=== PATIENT | female | born 1960 | race Caucasian/White ===

== ENCOUNTER 2023-12-08 11:15 | Observation (INO) | payer MEDICAID ==
[2023-12-08] MEDS: Nitroglycerin 0.4 MG Tab.SL SL PRN (12:11)
[2023-12-08] MEDS: Ondansetron 4 MG/2 ML SDV IVPUSH ONE ×2 (12:24→18:49)
[2023-12-08] MEDS: Sodium Chloride 0.9% 1,000 ML IV ONE ×2 (12:29→19:30)
[2023-12-08 12:37] LABS: BASOPHILS ABSOLUTE AUTO 0.1 x10-3/uL (0.0-0.1); BASOPHILS PERCENT AUTO 0.6 % (0.2-1.5); EOSINOPHILS ABSOLUTE AUTO 0.3 x10-3/uL (0.0-0.8); EOSINOPHILS PERCENT AUTO 2.4 % (0.6-8.1); HEMATOCRIT 41.5 % (34.2-48.2); HEMOGLOBIN 13.8 g/dL (11.4-15.5); LYMPHOCYTES ABSOLUTE AUTO 2.8 x10-3/uL (1.0-4.4); MEAN CORPUSCULAR HEMOGLOBIN 28.4 pg (23.9-33.9); MEAN CORPUSCULAR HGB CONC 33.2 g/dL (31.9-34.8); MEAN CORPUSCULAR VOLUME 85.4 fL (76.7-100.5); MEAN PLATELET VOLUME 8.1 fL (7.1-12.4); MONOCYTES ABSOLUTE AUTO 1.6 x10-3/uL (0.3-1.0); MONOCYTES PERCENT AUTO 13.9 % (4.4-15.7); NEUTROPHILS ABSOLUTE AUTO 6.9 x10-3/uL (1.5-6.3); NEUTROPHILS PERCENT AUTO 59.1 % (30.8-76.2); PLATELET COUNT,PLT 239 x10(3)uL (151-488); RED BLOOD CELL COUNT 4.87 x10(6)uL (3.60-5.20); RED CELL DISTRIBUTION WIDTH 14.9 % (12.3-16.5); WHITE BLOOD CELL COUNT,WBC 11.7 x10-3/uL (3.0-10.3)
[2023-12-08 12:42] LABS: BLOOD UREA NITROGEN,BUN 24 mg/dL (7-18); BUN/CREATININE RATIO 18.5 (9-20); CALCIUM 9.5 mg/dL (8.6-10.2); CARBON DIOXIDE,CO2 27 mmol/L (21-32); CHLORIDE,CL 102 mmol/L (100-110); CREATININE 1.3 mg/dL (0.55-1.02); EST CRCL DRUG DOSING (CG) 34.58 mL/min; ESTIMATED GFR 46 mL/min (>60); GLUCOSE RANDOM 129 mg/dL (80-116); SODIUM,NA 139 mmol/L (135-145)
[2023-12-08 12:48] LABS: A/G RATIO 0.8; ALANINE AMINOTRANSFERASE,ALT 31 U/L (12-36); ALBUMIN 3.5 g/dL (3.2-4.6); ALKALINE PHOSPHATASE 89 IU/L (56-112); ASPARTATE AMNIOTRANSFERASE,AST 40 IU/L (5-25); BILIRUBIN TOTAL 0.4 mg/dL (0.1-1.3); PROTEIN TOTAL,TP 7.9 g/dL (6.0-8.0)
[2023-12-08] MEDS: Morphine 2 MG/ML SYRINGE IVPUSH ONE (13:12)
[2023-12-08] MEDS: fentaNYL 100 MCG/2 ML SDV IVPUSH ONE ×2 (13:35→20:44)
[2023-12-08] MEDS: Iopamidol 755 Mg/ML 100 ML Bottle IV SCH ×2 (15:26→19:30)
[2023-12-08] MEDS: fentaNYL 100 MCG/2 ML SDV IVPUSH STA (18:38)
[2023-12-08] MEDS: Diatrizoate Meglumine/Diatrizoate Sodium 37% 30 ML Bottle PO ONE (19:30)
[2023-12-08 22:16] LABS: BILIRUBIN,URINE NEGATIVE (NEGATIVE); GLUCOSE,URINE NORMAL (NORMAL); KETONES,URINE NEGATIVE (NEGATIVE); LEUKOCYTE ESTERASE,URINE LARGE (NEGATIVE); NITRITE,URINE NEGATIVE (NEGATIVE); OCCULT BLOOD,URINE NEGATIVE (NEGATIVE); PROTEIN,URINE NEGATIVE (NEGATIVE); UROBILINOGEN,URINE NORMAL (NEGATIVE)
[2023-12-08 22:19] LABS: APPEARANCE,URINE CLEAR (CLEAR); BACTERIA,URINE FEW (NS); COLOR,URINE YELLOW (YELLOW); RBC,URINE 0-5 (0-5); SQUAMOUS EPITHELIAL CELLS,UR FEW (NS,R,O)
[2023-12-09] MEDS: fentaNYL 100 MCG/2 ML SDV IVPUSH PRN (00:56)
[2023-12-09] MEDS: Sodium Chloride 0.9% 10 ML Syringe FLUSH PRN (01:12)
[2023-12-09] MEDS ORDERED: Acetaminophen/HYDROcodone 325-5 MG Tab PO PRN (10:45)
[2023-12-09] MEDS ORDERED: Tiotropium BR/Olodaterol HCL 4 GM Inhalation Spray 2.5mcg/1 dose; 10 doses INH PRN (11:01)
[2023-12-09] MEDS ORDERED: Albuterol 6.7 GM Inhaler INH PRN (11:01)
[2023-12-09] MEDS: busPIRone 15 MG Tab PO SCH (11:27)
[2023-12-09] MEDS: Ezetimibe 10 MG Tab PO SCH (11:28)
[2023-12-09] MEDS: DULoxetine 60 MG Cap PO SCH (11:28)
[2023-12-09] MEDS: Metoprolol Tartrate 100 MG Tab PO SCH (11:28)
[2023-12-09] MEDS: Magnesium Oxide 400 MG Tab PO SCH (11:28)
[2023-12-09] MEDS: Aspirin 81 MG Tab.EC PO SCH (11:29)
[2023-12-09] MEDS: amLODIPine 5 MG Tab PO SCH (11:29)
[2023-12-09] MEDS: lamoTRIgine 25 MG Tab PO SCH (11:29)
[2023-12-09] MEDS: Isosorbide Mononitrate 60 MG Tab.ER PO SCH (11:30)
[2023-12-09] MEDS: atorvaSTATin 20 MG Tab PO SCH (11:30)
[2023-12-09] MEDS: Pantoprazole 40 MG Tab.CR PO SCH (11:30)
[2023-12-09] MEDS: Levofloxacin/Dextrose 5%-Water 750 MG in Premix Bag 1 BAG IV SCH (11:34)
[2023-12-09] MEDS: Acetaminophen/oxyCODONE 325-5 MG Tab PO PRN (11:39)
[2023-12-09] MEDS ORDERED: Glucagon,Human Recombinant 1 MG Vial IM PRN (12:06)
[2023-12-09] MEDS ORDERED: 50% Dextrose in Water 50 ML Syringe IVPUSH PRN (12:06)
[2023-12-09] MEDS: Sodium Chloride 0.9% 1,000 ML IV SCH (12:33)
[2023-12-09 13:00] LABS: LACTIC ACID 2.5 mmol/L (0.4-2.0)
[2023-12-09] MEDS: Clindamycin HCl 150 MG Cap PO SCH (13:09)
[2023-12-09] MEDS: Heparin Sodium 5,000 Units/ML Vial SUBCUT SCH (13:15)
[2023-12-09 14:49] VITALS: BP 168/73; PULSE 77
[2023-12-09] MEDS: Acetaminophen 500 MG Tab PO PRN (15:12)
[2023-12-09] MEDS: Morphine 2 MG/ML SYRINGE IVPUSH PRN (16:43)
[2023-12-09] MEDS ORDERED: Insulin Lispro 100 Unit/ML 3 ML KwikPen SUBCUT SCH (18:00)
[2023-12-09] MEDS ORDERED: Latanoprost 0.005% Ophth Soln 2.5 ML Bottle EYEBOTH SCH (21:00)
[2023-12-10] MEDS ORDERED: ATOMOXETINE 40 MG PO SCH (09:00)
[2023-12-11 06:58] LABS: CREATININE,URINE - PER VOLUME 97 mg/dL; HOURS COLLECTED Not Provided hr; TOTAL VOLUME Not Provided mL; URINE UREA NITROGEN - MG/DL 762 mg/dL
[2023-12-13 08:39] LABS: CREATININE,URINE - PER VOLUME 97 mg/dL; HOURS COLLECTED Not Provided hr; TOTAL VOLUME Not Provided mL
== END 2023-12-09 17:22 ==
LOC: FB.ED 11:15 → FB.MS 23:45
PROVIDERS: ADMIT Internal Medicine; ATTEND Internal Medicine
DX: N17.9 Acute kidney failure, unspecified (principal); N39.0 Urinary tract infection, site not specified; R31.9 Hematuria, unspecified; N13.30 Unspecified hydronephrosis; E11.9 Type 2 diabetes mellitus without complications; I10 Essential (primary) hypertension; E78.5 Hyperlipidemia, unspecified; I25.10 Atherosclerotic heart disease of native coronary artery without angina pectoris; F32.A Depression, unspecified; J44.9 Chronic obstructive pulmonary disease, unspecified; Z79.899 Other long term (current) drug therapy
CPT/HCPCS: 36415; 71275; 74177; 80053; 81001; 82570; 83605; 84484; 84540; 85025; 85379; 86140; 87040; 87086; 87088; 87186; 93005; 93010; 96361; 96365; 96366; 96372; 96374; 96375; 96376; 99222; 99238; 99285; 99285-25; A9270-GY; G0378; J1644; J1815; J1956; J2270; J2405; J3010; J3490; J7030; Q9963; Q9967

== ENCOUNTER 2023-12-24 13:43 | Emergency (ER) | payer MEDICAID ==
[2023-12-24] MEDS: Cyclobenzaprine 10 MG Tab PO ONE (14:28)
[2023-12-24] MEDS: oxyCODONE 5 MG Tab PO ONE (14:29)
[2023-12-24 16:37] VITALS: BP 150/75; PULSE 74
== END 2023-12-24 15:11 | disposition home or self-care (01) ==
LOC: FB.ED 13:43
DX: M54.50 Low back pain, unspecified (principal); K08.89 Other specified disorders of teeth and supporting structures; I11.0 Hypertensive heart disease with heart failure; I50.9 Heart failure, unspecified; I25.2 Old myocardial infarction; E78.00 Pure hypercholesterolemia, unspecified; K21.9 Gastro-esophageal reflux disease without esophagitis; E11.9 Type 2 diabetes mellitus without complications; E66.9 Obesity, unspecified; Z88.0 Allergy status to penicillin; Z88.8 Allergy status to other drugs, medicaments and biological substances; Z79.82 Long term (current) use of aspirin; Z79.899 Other long term (current) drug therapy; Z79.84 Long term (current) use of oral hypoglycemic drugs; Z79.51 Long term (current) use of inhaled steroids; Z95.5 Presence of coronary angioplasty implant and graft
CPT/HCPCS: 99283; A9270

== ENCOUNTER 2024-04-27 13:49 | Emergency (ER) | payer MEDICAID ==
[2024-04-27 14:08] VITALS: BP 122/79; PULSE 100
== END 2024-04-27 15:09 | disposition home or self-care (01) ==
LOC: FB.ED 13:49
DX: S20.211A Contusion of right front wall of thorax, initial encounter (principal); I25.2 Old myocardial infarction; I11.0 Hypertensive heart disease with heart failure; I50.9 Heart failure, unspecified; E78.00 Pure hypercholesterolemia, unspecified; K21.9 Gastro-esophageal reflux disease without esophagitis; E11.9 Type 2 diabetes mellitus without complications; E66.9 Obesity, unspecified; F17.210 Nicotine dependence, cigarettes, uncomplicated; Z95.5 Presence of coronary angioplasty implant and graft; Z90.89 Acquired absence of other organs; Z88.0 Allergy status to penicillin; Z88.8 Allergy status to other drugs, medicaments and biological substances; Z79.51 Long term (current) use of inhaled steroids; Z79.82 Long term (current) use of aspirin; Z79.899 Other long term (current) drug therapy; W01.198A Fall on same level from slipping, tripping and stumbling with subsequent striking against other object, initial encounter
CPT/HCPCS: 71101-RT; 99283

== ENCOUNTER 2024-08-20 14:59 | Emergency (ER) | payer MEDICARE, MEDICAID ==
[2024-08-20 16:02] LABS: HEMATOCRIT 36.9 % (34.2-48.2); MEAN CORPUSCULAR HEMOGLOBIN 32.6 pg (23.9-33.9); MEAN CORPUSCULAR HGB CONC 32.5 g/dL (31.9-34.8); MEAN CORPUSCULAR VOLUME 100.3 fL (76.7-100.5); PLATELET COUNT,PLT 185 x10(3)uL (151-488); RED BLOOD CELL COUNT 3.68 x10(6)uL (3.60-5.20); RED CELL DISTRIBUTION WIDTH 17.8 % (12.3-16.5); WHITE BLOOD CELL COUNT,WBC 4.4 x10-3/uL (3.0-10.3)
[2024-08-20 16:04] LABS: BILIRUBIN,URINE NEGATIVE (NEGATIVE); GLUCOSE,URINE >1000 mg/dL (NORMAL); KETONES,URINE NEGATIVE (NEGATIVE); LEUKOCYTE ESTERASE,URINE LARGE (NEGATIVE); NITRITE,URINE NEGATIVE (NEGATIVE); OCCULT BLOOD,URINE LARGE (NEGATIVE); PROTEIN,URINE 30 mg/dL (NEGATIVE); UROBILINOGEN,URINE NORMAL (NEGATIVE)
[2024-08-20 16:07] LABS: BLOOD UREA NITROGEN,BUN 9 mg/dL (7-18); CALCIUM 9.1 mg/dL (8.6-10.2); CARBON DIOXIDE,CO2 27 mmol/L (21-32); CHLORIDE,CL 100 mmol/L (100-110); CREATININE 0.6 mg/dL (0.55-1.02); EST CRCL DRUG DOSING (CG) 73.93 mL/min; ESTIMATED GFR 100 mL/min (>60); GLUCOSE RANDOM 140 mg/dL (80-116); POTASSIUM,K 3.7 mmol/L (3.5-5.3); SODIUM,NA 138 mmol/L (135-145)
[2024-08-20 16:10] LABS: APPEARANCE,URINE CLOUDY (CLEAR); COLOR,URINE YELLOW (YELLOW)
[2024-08-20 16:11] LABS: BACTERIA,URINE FEW (NS); SQUAMOUS EPITHELIAL CELLS,UR RARE (NS,R,O); WBC,URINE 40-50 (0-5); YEAST,URINE MANY (NS)
[2024-08-20 16:13] LABS: ALANINE AMINOTRANSFERASE,ALT 77 U/L (12-36); ALKALINE PHOSPHATASE 156 IU/L (56-112); ASPARTATE AMNIOTRANSFERASE,AST 41 IU/L (5-25); BILIRUBIN TOTAL 0.4 mg/dL (0.1-1.3); C-REACTIVE PROTEIN 1.39 mg/dL (<0.50); PROTEIN TOTAL,TP 5.9 g/dL (6.0-8.0); TROPONIN I 26.5 pg/mL (4.0-60.3)
[2024-08-20 16:27] LABS: BAND PERCENT MAN 2 % (0-6); LYMPHOCYTES PERCENT MAN 18 % (13-37); MONOCYTES PERCENT MAN 15 % (4-12); NRBC MANUAL 2 /100WBC (0-0); SEG NEUTROPHILS PERCENT MAN 65 % (46-82)
[2024-08-20 16:28] LABS: ANISOCYTOSIS FEW
[2024-08-20] MEDS: Sodium Chloride 0.9% 10 ML Syringe FLUSH PRN (16:30)
[2024-08-20] MEDS: Sodium Chloride 0.9% 1,000 ML IV ONE (16:41)
[2024-08-20] MEDS: Ciprofloxacin in D5W 400 MG in Premix Bag 1 BAG IV ONE (18:30)
[2024-08-20] MEDS: Sodium Chloride 0.9% 500 ML IV ONE (18:50)
[2024-08-20 18:52] VITALS: BP 104/64
[2024-08-20 19:03] VITALS: PULSE 101
[2024-08-20] MEDS: Sodium Chloride 0.9% 1,000 ML IV SCH (19:37)
== END 2024-08-20 20:29 ==
LOC: FB.ED 14:59
DX: A41.9 Sepsis, unspecified organism (principal); N20.0 Calculus of kidney; B88.8 Other specified infestations; I11.0 Hypertensive heart disease with heart failure; I50.9 Heart failure, unspecified; I25.10 Atherosclerotic heart disease of native coronary artery without angina pectoris; K21.9 Gastro-esophageal reflux disease without esophagitis; E11.9 Type 2 diabetes mellitus without complications; E66.9 Obesity, unspecified; E87.20 Acidosis, unspecified; B37.49 Other urogenital candidiasis; C83.70 Burkitt lymphoma, unspecified site; Z88.8 Allergy status to other drugs, medicaments and biological substances; Z88.0 Allergy status to penicillin; Z79.82 Long term (current) use of aspirin; Z90.49 Acquired absence of other specified parts of digestive tract; Z79.899 Other long term (current) drug therapy
CPT/HCPCS: 36415; 51702; 74176; 80053; 81001; 83605; 83735; 84484; 85025; 86140; 87040; 87086; 87088; 87186; 93005; 93010; 96361; 96365; 99285; 99285-25; J0744; J7030; J7040

== ENCOUNTER 2024-08-29 15:09 | Emergency (ER) | payer MEDICARE, MEDICAID ==
[2024-08-29 16:33] LABS: HEMATOCRIT 37.8 % (34.2-48.2); HEMOGLOBIN 12.8 g/dL (11.4-15.5); MEAN CORPUSCULAR HEMOGLOBIN 33.1 pg (23.9-33.9); MEAN CORPUSCULAR HGB CONC 33.7 g/dL (31.9-34.8); RED BLOOD CELL COUNT 3.86 x10(6)uL (3.60-5.20); WHITE BLOOD CELL COUNT,WBC 2.7 x10-3/uL (3.0-10.3)
[2024-08-29 16:34] LABS: MEAN PLATELET VOLUME 6.9 fL (7.1-12.4); PLATELET COUNT,PLT 257 x10(3)uL (151-488); RED CELL DISTRIBUTION WIDTH 18.3 % (12.3-16.5)
[2024-08-29 16:36] LABS: BLOOD UREA NITROGEN,BUN 13 mg/dL (7-18); BUN/CREATININE RATIO 18.6 (9-20); CALCIUM 9.3 mg/dL (8.6-10.2); CARBON DIOXIDE,CO2 27 mmol/L (21-32); CHLORIDE,CL 100 mmol/L (100-110); CREATININE 0.7 mg/dL (0.55-1.02); ESTIMATED GFR 96 mL/min (>60); GLUCOSE RANDOM 128 mg/dL (80-116); SODIUM,NA 137 mmol/L (135-145)
[2024-08-29 16:45] LABS: LACTIC ACID 0.7 mmol/L (0.4-2.0)
[2024-08-29 16:53] LABS: ANISOCYTOSIS MODERATE; LYMPHOCYTES PERCENT MAN 14 % (13-37); MONOCYTES PERCENT MAN 40 % (4-12); SEG NEUTROPHILS PERCENT MAN 46 % (46-82); TARGET CELLS FEW
[2024-08-29 17:13] LABS: BILIRUBIN,URINE NEGATIVE (NEGATIVE); GLUCOSE,URINE 250 mg/dL (NORMAL); KETONES,URINE NEGATIVE (NEGATIVE); LEUKOCYTE ESTERASE,URINE NEGATIVE (NEGATIVE); NITRITE,URINE NEGATIVE (NEGATIVE); OCCULT BLOOD,URINE NEGATIVE (NEGATIVE); PROTEIN,URINE NEGATIVE (NEGATIVE); UROBILINOGEN,URINE NORMAL (NEGATIVE)
[2024-08-29 17:23] LABS: COLOR,URINE YELLOW (YELLOW)
[2024-08-29 17:24] LABS: APPEARANCE,URINE CLEAR (CLEAR)
[2024-08-29 17:43] VITALS: BP 156/87; PULSE 89
[2024-08-29] MEDS: Ketorolac 30 MG/ML SDV IM ONE (18:00)
[2024-08-29] MEDS: Ketorolac 30 MG/ML SDV IVPUSH ONE (18:00)
== END 2024-08-29 18:31 | disposition home or self-care (01) ==
LOC: FB.ED 15:09
DX: R51.9 Headache, unspecified (principal); Z46.6 Encounter for fitting and adjustment of urinary device; I25.10 Atherosclerotic heart disease of native coronary artery without angina pectoris; I25.2 Old myocardial infarction; I11.0 Hypertensive heart disease with heart failure; I50.9 Heart failure, unspecified; E78.00 Pure hypercholesterolemia, unspecified; K21.9 Gastro-esophageal reflux disease without esophagitis; E11.9 Type 2 diabetes mellitus without complications; Z90.49 Acquired absence of other specified parts of digestive tract; Z88.0 Allergy status to penicillin; Z88.8 Allergy status to other drugs, medicaments and biological substances; Z79.82 Long term (current) use of aspirin; Z79.84 Long term (current) use of oral hypoglycemic drugs; Z79.899 Other long term (current) drug therapy
CPT/HCPCS: 36415; 51702; 80048; 81003; 83605; 85025; 96372; 99284; J1885